=== PATIENT | female | born 1950 | race Caucasian/White ===

== ENCOUNTER 2024-11-07 19:04 | Emergency (ER) | payer MEDICARE, BC ==
[~2024-11-07] VITALS: Ht 154.9 cm; Wt 56.7 kg
[2024-11-07 20:13] VITALS: BP 124/67; PULSE 80; RESP 18; TEMP 98.4; O2SAT 98
[2024-11-07 20:27] LABS: INFLUENZA VIRUS A ANTIGEN POSITIVE (NEG); INFLUENZA VIRUS B ANTIGEN NEGATIVE (NEG)
[2024-11-07] MEDS ORDERED: OSEL75CA PO (20:40)
[2024-11-07 20:43] VITALS: BP 124/67; PULSE 80; RESP 18; TEMP 98.4; O2SAT 98
== END 2024-11-07 20:46 | disposition home or self-care (01) ==
LOC: ER 19:04
DX: J10.1 Influenza due to other identified influenza virus with other respiratory manifestations (principal); Z90.710 Acquired absence of both cervix and uterus; Z20.822 Contact with and (suspected) exposure to COVID-19
CPT/HCPCS: 87426; 87804; 99283